=== PATIENT | female | born 1950 | race Two or more races ===

== ENCOUNTER 2022-10-07 14:29 | Emergency (ER) | payer BC, OTHER ==
[~2022-10-07] VITALS: Ht 152.4 cm; Wt 56.7 kg
[2022-10-07] MEDS ORDERED: HYDR-4209 PO (15:03)
[2022-10-07] MEDS ORDERED: CARI350T PO (15:03)
[2022-10-07 15:09] VITALS: BP 153/97; O2SAT 96
== END 2022-10-07 15:11 | disposition home or self-care (01) ==
LOC: ER 14:29
DX: M54.50 Low back pain, unspecified (principal); E11.9 Type 2 diabetes mellitus without complications
CPT/HCPCS: A4663